=== PATIENT | female | born 1980 | race Caucasian/White ===

== ENCOUNTER 2019-03-15 09:02 | Emergency (ER) | payer SELFPAY ==
[~2019-03-15] VITALS: Ht 165.1 cm; Wt 65.8 kg
--- NOTE | 2019-03-15 10:03 | PHYS DOC ---
Past Medical History Past Medical History: Seizure Past Surgical History: Other Additional Past Surgical Histo: TIB/FIB FX WITH PREMA INSERTED. Smoking: Cigarettes Alcohol Use: Heavy Additional Information: PATIENT STATES THAT SHE HAS CUT DOWN ON HER DRINKING. PATIENT NOW DRINKS A PINT A WEEK, INSTEAD OF DAILY. Drug Use: Marijuana Adult General Chief Complaint Chief Complaint: NAUSEA/VOMITING/DIARRHA HPI HPI Patient presents to the emergency department for evaluation. She states that for the past 2 months, she has had a cough productive of greenish and brownish sputum. She has not had any pain, but reports that she has had numerous episodes of posttussive emesis. She denies any abdominal pain, diarrhea, chest pain, or significant shortness of breath. She denies any headache, vision changes, numbness, or weakness. She does have a history of seizures, and states that she has been out of her Tegretol for about a month or so, as she is currently working on getting a PCP. She is to take 200 mg daily and is requesting a refil l. There are no alleviating or exacerbating factors to the patient's symptoms. She has not had a seizure recently, her last seizure was several months ago. The patient has not had any nausea or vomiting outside of her posttussive emesis. Review of Systems Review of Systems Constitutional: Denies fever or chills [] Eyes: Denies change in visual acuity, redness, or eye pain [] HENT: Reports nasal congestion. Denies otalgia or sore throat [] Respiratory: No additional information not addressed in HPI [] Cardiovascular: The patient denies any shortness of breath, chest pain, palpitations, or orthopnea [] GI: Denies abdominal pain vomiting, bloody stools or diarrhea [] : Denies dysuria or hematuria [] Musculoskeletal: Denies back pain or joint pain [] Integument: Denies rash or skin lesions [] Neurologic: Denies headache, focal weakness or sensory changes [] Endocrine: Denies polyuria or polydipsia [] All other systems were reviewed and found to be within normal limits, except as documented in this note. Allergies Allergies Allergies Coded Allergies Type Severity Reaction Last Updated Verified No Known Drug Allergies 03/15/19 No Physical Exam Physical Exam PHYSICAL EXAM: CONSTITUTIONAL: Well developed, well nourished HEAD: normocephalic, atraumatic EENT: PERRL, EOMI. Conjunctivae normal color, sclerae non-icteric; moist mucous membranes. NECK: Supple, non-tender; no meningismus. LUNGS: Lungs CTA, breathing even and unlabored. Normal air movement. HEART: Regular rate and rhythm, no murmur CHEST: No deformity; non-tender ABDOMEN: The abdomen is soft, and non-tender, no masses or bruits. EXTREM: Normal ROM; no deformity, no calf tenderness. Normal pulses palpable in all extremities. There is no pedal edema. SKIN: No rash; no diaphoresis NEURO: Alert; normal speech and cognition; CN's grossly intact; strength grossly intact without focal deficit. BACK: No CVA TTP. Current Patient Data Vital Signs Vital Signs Date Time Temp Pulse Resp B/P (MAP) Pulse Ox O2 Delivery O2 Flow Rate FiO2 03/15/19 09:30 98.4 105 18 163/102 (122) 98 Room Air 98.4 Lab Values Laboratory Tests Test 03/15/19 09:32 POC Urine HCG, Qualitative Hcg negative (Negative) EKG EKG [] Radiology/Procedures Radiology/Procedures PROCEDURE: CHEST PA & LATERAL EXAM: CHEST 2 VIEWS. HISTORY: Cough. COMPARISON: None. FINDINGS: Frontal and lateral views of the chest are obtained. There are no confluent infiltrates. There is no pneumothorax or pleural effusion. The heart is not enlarged. IMPRESSION: 1. No confluent infiltrates.[] Course & Med Decision Making Course & Med Decision Making Pertinent Imaging studies reviewed. (See chart for details) [] I discussed test results with the patient, the importance of establishing care with a PCP (she'll be given resources of local physicians), importance of smoking cessation, and return precautions in detail. She'll be given an antitussive and a refill for 1 month supply of her Tegretol, which she states was 200 mg once daily. Dragon Disclaimer Dragon Disclaimer This electronic medical record was generated, in whole or in part, using a voice recognition dictation system. Departure Departure Impression: Primary Impression: Cough Disposition: HOME, SELF-CARE Condition: STABLE Referrals: NO PCP (PCP) Patient Instructions: Cough, Adult, Smoking Cessation Additional Instructions: Use the provided resources to establish care with a primary care provider. Return to medical care for any new or worsening symptoms, development of difficulty breathing, any new pain, fever, recurrent vomiting, or any other new, or concerning symptoms. Stopping smoking will help your lung help as well as your overall health. Scripts Carbamazepine (TEGRETOL) 200 Mg Tablet 200 MG PO QHS, #30 TAB Prov: ELISA CEDENO MD 03/15/19 Benzonatate (TESSALON PERLE) 100 Mg Capsule 200 MG PO TID PRN for COUGH, #30 CAP Prov: ELISA CEDENO MD 03/15/19 Ondansetron Hcl (ZOFRAN) 4 Mg Tablet 1 TAB PO Q6HRS PRN for NAUSEA/VOMITING, #20 TAB Prov: ELISA CEDENO MD 03/15/19 ELISA CEDENO MD Mar 15, 2019 10:03
--- NOTE | 2019-03-15 10:29 | RAD ---
EXAM: CHEST 2 VIEWS. HISTORY: Cough. COMPARISON: None. FINDINGS: Frontal and lateral views of the chest are obtained. There are no confluent infiltrates. There is no pneumothorax or pleural effusion. The heart is not enlarged. IMPRESSION: 1. No confluent infiltrates. Electronically signed by: Delilah Meng MD (03/15/2019 10:26 AM) [facility]
[2019-03-15] MEDS ORDERED: BENZ100C PO (10:49)
[2019-03-15] MEDS ORDERED: ONDA4TAB7 PO (10:49)
[2019-03-15] MEDS ORDERED: CARB200T PO (10:49)
[2019-03-15 11:14] VITALS: BP 138/83
== END 2019-03-15 11:17 | disposition home or self-care (01) ==
LOC: ER 09:02
DX: R05 Cough (principal); R09.81 Nasal congestion; G40.909 Epilepsy, unspecified, not intractable, without status epilepticus; M96.671 Fracture of tibia or fibula following insertion of orthopedic implant, joint prosthesis, or bone plate, right leg; Z87.891 Personal history of nicotine dependence; F10.20 Alcohol dependence, uncomplicated; F12.90 Cannabis use, unspecified, uncomplicated; Y90.9 Presence of alcohol in blood, level not specified
CPT/HCPCS: 71046; 81025; 99284

== ENCOUNTER 2019-03-15 12:38 | Emergency (ER) | payer SELFPAY ==
[~2019-03-15] VITALS: Ht 165.1 cm; Wt 65.8 kg
[~2019-03-15 12:38] MED LIST: BENZ100C PO; CARB200T PO; ONDA4TAB7 PO
[2019-03-15] MEDS ORDERED: IV NORMAL SALINE 1000ML BAG 1,000 ML IV ONE (13:30)
[2019-03-15] MEDS ORDERED: levETIRAcetam 1,000 MG in IV DEXTROSE 5% 100ML 100 ML IV ONE (13:30)
[2019-03-15 13:35] LABS: BASO % 1 % (0-3); EOS # 0.1 x10^3/uL (0.0-0.7); EOS % 1 % (0-3); HEMATOCRIT 40.9 % (36.0-47.0); HEMOGLOBIN 13.8 g/dL (12.0-15.5); LYMPH # 1.3 x10^3/uL (1.0-4.8); LYMPH % 21 % (24-48); MEAN CORPUSCULAR HEMOGLOBIN 36 pg (25-35); MEAN CORPUSCULAR HGB CONC 34 g/dL (31-37); MEAN CORPUSCULAR VOLUME 106 fL (79-100); MONO # 0.3 x10^3/uL (0.0-1.1); MONO % 5 % (0-9); NEUT # 4.7 x10^3/uL (1.8-7.7); NEUT % 73 % (31-73); PLATELET COUNT 123 x10^3/uL (140-400); RED BLOOD COUNT 3.87 x10^6/uL (3.50-5.40); RED CELL DISTRIBUTION WIDTH 13.6 % (11.5-14.5); WHITE BLOOD COUNT 6.5 x10^3/uL (4.0-11.0)
[2019-03-15 13:50] LABS: CALCIUM 8.6 mg/dL (8.5-10.1); GFR 61.7; POTASSIUM 3.2 mmol/L (3.5-5.1); PREG TEST PT QUAL NEGATIVE (NEG)
--- NOTE | 2019-03-15 13:52 | PHYS DOC ---
Past Medical History Past Medical History: Seizure Past Surgical History: Other Additional Past Surgical Histo: TIB/FIB FX WITH PREMA INSERTED. Smoking: Cigarettes Alcohol Use: Heavy Drug Use: Marijuana Adult General Chief Complaint Chief Complaint: SEIZURE HPI HPI Patient is a 39-year-old female who presents to the emergency department for evaluation. The patient was recently discharged from this ER by myself, where she presented for persistent cough. She states that she went to [facility] to get her medications, and according to EMS, had what was witnessed to be a general ized tonic-clonic seizure in the pharmacy. EMS reported that the patient was postictal when they got there, but at the time of my assessment, the patient's mental status is normal. She does not have any recollection of the event, as his typical of her seizures. She states she did hit her head, but denies any other painful areas. She denies biting her tongue or losing urinary continence. Her mental status is back to baseline at this time. There are no alleviating or exacerbating factors to her symptoms otherwise. Review of Systems Review of Systems Constitutional: Denies fever or chills [] Eyes: Denies change in visual acuity, redness, or eye pain [] HENT: Denies nasal congestion or sore throat [] Respiratory: Denies shortness of breath [] Cardiovascular: The patient denies any shortness of breath, chest pain, palpitations, or orthopnea [] GI: Denies abdominal pain, nausea, vomiting, bloody stools or diarrhea [] : Denies dysuria or hematuria [] Musculoskeletal: Denies back pain or joint pain [] Integument: Denies rash or skin lesions [] Neurologic: Denies focal weakness or sensory changes [] Endocrine: Denies polyuria or polydipsia [] All other systems were reviewed and found to be within normal limits, except as documented in this note. Current Medications Current Medications Current Medications Medications (Trade) Dose Ordered Sig/Roxann Start Time Stop Time Status Last Admin Dose Admin Carbamazepine (TEGretol XR) 200 mg 1X ONCE 03/15/19 14:45 03/15/19 14:47 DC 03/15/19 14:56 200 MG Levetiracetam 1000 mg/Dextrose 110 ml @ 440 mls/hr 1X ONCE 03/15/19 13:30 03/15/19 13:44 DC 03/15/19 13:56 440 MLS/HR Magnesium Sulfate 50 ml @ 25 mls/hr 1X ONCE 03/15/19 14:45 03/15/19 16:44 03/15/19 14:53 25 MLS/HR Potassium Chloride (Klor-Con) 40 meq 1X ONCE 03/15/19 14:45 03/15/19 14:47 DC 03/15/19 14:53 40 MEQ Sodium Chloride 1,000 ml @ 1,000 mls/hr 1X ONCE 03/15/19 13:30 03/15/19 14:29 DC 03/15/19 13:43 1,000 MLS/HR Allergies Allergies Allergies Coded Allergies Type Severity Reaction Last Updated Verified No Known Drug Allergies 03/15/19 No Physical Exam Physical Exam PHYSICAL EXAM: CONSTITUTIONAL: Well developed, well nourished HEAD: normocephalic, atraumatic EENT: PERRL, EOMI. Conjunctivae normal color, sclerae non-icteric; moist mucous membranes. NECK: Supple, non-tender; no meningismus.There is full, painless range of motion of the cervical spine, without any focal bony midline tenderness to palpation. LUNGS: Lungs CTA, breathing even and unlabored. Normal air movement. HEART: Regular rate and rhythm, no murmur CHEST: No deformity; non-tender ABDOMEN: The abdomen is soft, and non-tender, no masses or bruits. EXTREM: Normal ROM; no deformity, no calf tenderness. Normal pulses palpable in all extremities. There is no pedal edema. SKIN: No rash; no diaphoresis NEURO: Alert; normal speech and cognition; CN's grossly intact; strength grossly intact without focal deficit. BACK: No CVA TTP. Current Patient Data Vital Signs Vital Signs Date Time Temp Pulse Resp B/P (MAP) Pulse Ox O2 Delivery O2 Flow Rate FiO2 03/15/19 12:38 98.5 110 20 139/85 (103) 97 Room Air 98.5 Lab Values Laboratory Tests Test 03/15/19 12:50 03/15/19 13:35 White Blood Count 6.5 x10^3/uL (4.0-11.0) Red Blood Count 3.87 x10^6/uL (3.50-5.40) Hemoglobin 13.8 g/dL (12.0-15.5) Hematocrit 40.9 % (36.0-47.0) Mean Corpuscular Volume 106 fL (79-100) H Mean Corpuscular Hemoglobin 36 pg (25-35) H Mean Corpuscular Hemoglobin Concent 34 g/dL (31-37) Red Cell Distribution Width 13.6 % (11.5-14.5) Platelet Count 123 x10^3/uL (140-400) L Neutrophils (%) (Auto) 73 % (31-73) Lymphocytes (%) (Auto) 21 % (24-48) L Monocytes (%) (Auto) 5 % (0-9) Eosinophils (%) (Auto) 1 % (0-3) Basophils (%) (Auto) 1 % (0-3) Neutrophils # (Auto) 4.7 x10^3/uL (1.8-7.7) Lymphocytes # (Auto) 1.3 x10^3/uL (1.0-4.8) Monocytes # (Auto) 0.3 x10^3/uL (0.0-1.1) Eosinophils # (Auto) 0.1 x10^3/uL (0.0-0.7) Basophils # (Auto) 0.0 x10^3/uL (0.0-0.2) Sodium Level 135 mmol/L (136-145) L Potassium Level 3.2 mmol/L (3.5-5.1) L Chloride Level 94 mmol/L (98-107) L Carbon Dioxide Level 16 mmol/L (21-32) L Anion Gap 25 (6-14) H Blood Urea Nitrogen 6 mg/dL (7-20) L Creatinine 1.0 mg/dL (0.6-1.0) Estimated GFR (Cockcroft-Gault) 61.7 BUN/Creatinine Ratio 6 (6-20) Glucose Level 151 mg/dL (70-99) H Calcium Level 8.6 mg/dL (8.5-10.1) Magnesium Level 0.9 mg/dL (1.8-2.4) L Total Bilirubin 1.3 mg/dL (0.2-1.0) H Aspartate Amino Transferase (AST) 77 U/L (15-37) H Alanine Aminotransferase (ALT) 52 U/L (14-59) Alkaline Phosphatase 71 U/L (46-116) Total Protein 8.6 g/dL (6.4-8.2) H Albumin 3.8 g/dL (3.4-5.0) Albumin/Globulin Ratio 0.8 (1.0-1.7) L Serum Test, Qualitative Negative (NEG) Ethyl Alcohol Level < 10 mg/dL (0-10) Lactic Acid Level 4.6 mmol/L (0.4-2.0) *H Laboratory Tests 03/15/19 12:50 Laboratory Tests 03/15/19 12:50 EKG EKG Normal sinus rhythm with a normal rate, normal axis, normal intervals, there are no acute ischemic ST/T changes.[] Radiology/Procedures Radiology/Procedures PROCEDURE: CT HEAD WO CONTRAST EXAM: Head CT without contrast. HISTORY: Seizure. Fall. TECHNIQUE: Computed tomographic images of the head were obtained without contrast. *One or more of the following individualized dose reduction techniques were utilized for this examination: 1. Automated exposure control. 2. Adjustment of the mA and/or kV according to patient size. 3. Use of iterative reconstruction technique. COMPARISON: None. FINDINGS: There is no acute or subacute extra-axial or intraparenchymal hemorrhage. There is no mass effect or midline shift. There is no hydrocephalus. The medina-white matter differential pattern is intact. There is an incidental left tomy bullosa. The visualized portions the orbits and mastoid air cells are unremarkable. No calvarial lesion is seen. IMPRESSION: No acute intracranial findings. [] Course & Med Decision Making Course & Med Decision Making Pertinent Labs and Imaging studies reviewed. (See chart for details) [] 3:40 PM: The patient's condition remains stable. She is currently asymptomatic at this time. She has no complaints. I discussed importance of close neurology follow-up and seizure medication compliance, and return precautions in detail. I suspect her chemistry abnormalities are related to her acidosis from her seizure. Patient does have her seizure medication with her which she just picked up from the pharmacy, as well as potassium and magnesium pills which she brought from the pharmacy. Dragon Disclaimer Dragon Disclaimer This electronic medical record was generated, in whole or in part, using a voice recognition dictation system. Departure Departure Impression: Primary Impression: Seizure Disposition: 01 HOME, SELF-CARE Condition: STABLE Referrals: MICHAEL THIBODEAUX MD Patient Instructions: Seizure, Adult Additional Instructions: Continue taking your seizure medication, as instructed. Call neurology physician, as instructed, to schedule a follow-up appointment for further evaluation and treatment. ELISA CEDENO MD Mar 15, 2019 13:52
[2019-03-15 13:56] LABS: ALBUMIN 3.8 g/dL (3.4-5.0); ALBUMIN/GLOBULIN RATIO 0.8 (1.0-1.7); MAGNESIUM 0.9 mg/dL (1.8-2.4); TOTAL BILIRUBIN 1.3 mg/dL (0.2-1.0); TOTAL PROTEIN 8.6 g/dL (6.4-8.2)
--- NOTE | 2019-03-15 14:19 | RAD ---
EXAM: Head CT without contrast. HISTORY: Seizure. Fall. TECHNIQUE: Computed tomographic images of the head were obtained without contrast. *One or more of the following individualized dose reduction techniques were utilized for this examination: 1. Automated exposure control. 2. Adjustment of the mA and/or kV according to patient size. 3. Use of iterative reconstruction technique. COMPARISON: None. FINDINGS: There is no acute or subacute extra-axial or intraparenchymal hemorrhage. There is no mass effect or midline shift. There is no hydrocephalus. The medina-white matter differential pattern is intact. There is an incidental left tomy bullosa. The visualized portions the orbits and mastoid air cells are unremarkable. No calvarial lesion is seen. IMPRESSION: No acute intracranial findings. Electronically signed by: Janie Shields MD (03/15/2019 2:16 PM) [place] [id number]
[2019-03-15] MEDS ORDERED: POTASSIUM CHLORIDE 20 MEQ TABLET.ER. PO ONE (14:45)
[2019-03-15] MEDS ORDERED: MAGNESIUM SULFATE 2GM 50 ML IV ONE (14:45)
--- NOTE | 2019-03-15 15:25 | EKG ---
[facility] [address] [place] [id number] Test Date: 2019-03-15 Test Time: 13:53:31 Pat Name: KRISTI ROSA Department: Room: Gender: F [employer]: : 1980 Requested By: ELISA CEDENO Order Number: [id number] Reading MD: Measurements Intervals [place] Rate: 87 P: 47 TN: 148 QRS: 15 QRSD: 84 T: 13 QT: 358 QTc: 431 Interpretive Statements SINUS RHYTHM NO SPECIFIC ECG ABNORMALITIES RI6.01 No previous ECG available for comparison
[2019-03-15 15:53] VITALS: BP 116/88
== END 2019-03-15 15:54 | disposition home or self-care (01) ==
LOC: ER 12:38
DX: G40.89 Other seizures (principal); F44.5 Conversion disorder with seizures or convulsions; M96.671 Fracture of tibia or fibula following insertion of orthopedic implant, joint prosthesis, or bone plate, right leg
CPT/HCPCS: 36415; 70450; 80053; 83605; 83735; 84703; 85025; 93005; 96365; 96367; 99285; G0480; J1953; J3475; J7030